=== PATIENT | male | born 2000 | race Caucasian/White ===

== ENCOUNTER 2025-07-14 13:19 | Emergency (ER) | payer OTHER ==
[~2025-07-14] VITALS: Ht 167.6 cm; Wt 83.8 kg
[2025-07-14] MEDS: LIDOCAINE W/EPINEPHrine 1% 20 ML VIAL SC ONE (15:21)
[2025-07-14] MEDS ORDERED: DOXY-441 PO (15:58)
[2025-07-14] MEDS: DOXYCYCLINE HYCLATE 100 MG TABLET PO ONE (16:00)
[2025-07-14 16:06] VITALS: BP 128/67; TEMP 97.4; O2SAT 99
== END 2025-07-14 16:07 | disposition home or self-care (01) ==
LOC: M ED 13:19
DX: L02.11 Cutaneous abscess of neck (principal); F17.210 Nicotine dependence, cigarettes, uncomplicated; Z79.2 Long term (current) use of antibiotics